=== PATIENT | female | born 1950 | race Caucasian/White ===

== ENCOUNTER 2025-01-26 19:52 | Inpatient (IN) | payer MEDICARE ==
[~2025-01-26] VITALS: Ht 167.6 cm; Wt 110.0 kg
[~2025-01-26 19:52] MED LIST: ATOR40TA PO; Aspir 8181 MG PO; CLON1 PO; METF500C PO; Multivitamin1 EAC1; TOPROL XL200 MG PO; VITAMIN D5000 UNIT PO; ZOLP10
[2025-01-26 20:19] LABS: BASOPHILS ABSOLUTE AUTO 0.05 K/mm3 (0.00-0.23); BASOPHILS PERCENT AUTO 1 % (0-2); EOSINOPHILS ABSOLUTE AUTO 0.18 K/mm3 (0.00-0.68); EOSINOPHILS PERCENT AUTO 2 % (0-6); Hematocrit 37.3 % (33.0-51.0); Hemoglobin 12.5 g/dL (11.5-16.0); IMMATURE GRAN ABSOLUTE AUTO 0.07 K/mm3 (0.00-0.10); IMMATURE GRAN PERCENT AUTO 1 % (0-1); LYMPHOCYTES ABSOLUTE AUTO 1.25 K/mm3 (0.84-5.20); LYMPHOCYTES PERCENT AUTO 13 % (21-46); MONOCYTES ABSOLUTE AUTO 0.59 K/mm3 (0.16-1.47); MONOCYTES PERCENT AUTO 6 % (4-13); Mean Corpuscular HGB 29.6 pg (26.0-34.0); Mean Corpuscular HGB Conc 33.5 g/dL (31.5-36.5); Mean Corpuscular Volume 88 fL (80-100); Mean Platelet Volume 9.2 fL (9.1-12.4); NEUTROPHILS ABSOLUTE AUTO 7.22 K/mm3 (1.96-9.15); NEUTROPHILS PERCENT AUTO 77 % (41-73); Platelet Count 312 K/mm3 (150-400); RDW Standard Deviation 44.7 fL (35.1-46.3); Red Blood Cell Count 4.22 M/mm3 (3.80-5.20); White Blood Cell Count 9.36 K/mm3 (4.00-11.30)
[2025-01-26] MEDS ORDERED: Metoprolol Tartrate 1 MG/ML 5 ML VIAL IV PRN (20:30)
[2025-01-26] MEDS ORDERED: Furosemide 10 MG / ML 2ML Vial IV ONE (20:35)
[2025-01-26 20:37] LABS: Albumin, Blood 3.3 g/dL (3.4-5.0); Bun/Creatinine Ratio 22.2 (12.0-20.0); Creatinine, Blood 0.85 mg/dL (0.40-1.00); Globulin, Blood 3.4 g/dL (2.2-4.0); Potassium, Blood 3.8 mmol/L (3.5-5.5); Total Protein, Blood 6.7 g/dL (6.4-8.2)
[2025-01-26] MEDS ORDERED: dilTIAZem HCL 125 MG in Dextrose 5% 100 ML IV SCH (21:50)
[2025-01-26] MEDS ORDERED: Diltiazem HCl 5 MG / ML 5ML Vial IV ONE (21:50)
[2025-01-26] MEDS ORDERED: Ondansetron 4 MG TAB PO PRN (22:15)
[2025-01-26] MEDS ORDERED: Apixaban 5 MG Tab PO SCH (22:16)
[2025-01-26] MEDS ORDERED: Ipratropium Bromide INH 0.02% 0.5 mg/2.5ML Vial INH SCH (22:25)
[2025-01-26 22:35] LABS: Free Thyroxine 1.23 ng/dL (0.70-1.60)
[2025-01-26 22:46] LABS: Phosphorus, Blood 3.9 mg/dL (2.5-4.9); Thyroid Stimulating Hormone 1.76 uIU/mL (0.360-4.800)
[2025-01-26 23:20] VITALS: BP 145/101
[2025-01-26 23:24] LABS: Base Excess Venous 4.4 mmol/L; pH Blood Venous 7.46 (7.34-7.37)
[2025-01-26] MEDS ORDERED: Prozac40 MG PO (23:55)
[2025-01-27] MEDS ORDERED: Metoprolol Tartrate 1 MG/ML 5 ML VIAL IV PRN (00:45)
[2025-01-27 04:20] VITALS: BP 124/97
--- NOTE | 2025-01-27 05:56 | NUR ---
SHIFT SUMMARY: PT ARRIVES TO PCU 15 FROM THE ER VIA GURNEY AROUND 2300. PT IS ABLE TO STAND PIVOT TO HOSPITAL BED, SBA. PT ARRIVES WITH CARDIZEM GTT INFUSING PER EMAR. PT IS ORIENTED TO ROOM AND CALL LIGHT. HTN, AFIB 90'S, ON 2L NC SATTING IN THE LOW 90'S, AFEBRILE. PT DID TOLERATE WEARING A CPAP MUCH OF THIS SHIFT. PT REMAINS IN AFIB 90'S-120'S. DENIES PAIN. PT IS A&OX4, PLEASANT AND COOPERATIVE. PT IS ON A HEART HEALTHY DIET, TOLERATING WATER. PT IS A SBA TO BR FOR LINE MANAGEMENT. VOIDING ADEQUATE AMOUNTS OF CLEAR YELLOW URINE. PT HAS STRESS INCONTINENCE BASELINE, PULLUP IN PLACE. NO BM THIS SHIFT. BED IN LOWEST POSITION, CALL LIGHT WITHIN REACH.
[2025-01-27] MEDS ORDERED: Insulin Human Lispro 100 Units/ML 3ML Syringe SC SCH (07:30)
--- NOTE | 2025-01-27 08:00 | NUR ---
[place] of care: Alert & oriented. In afib in 100-110s. Stable blood pressure. Oxygen saturation mid 90s on 4L NC with clear lung sounds. Taking good PO. Cardizem gtt infusing, see emar for details. Will continue to monitor.
[2025-01-27 08:14] VITALS: BP 138/98
[2025-01-27] MEDS ORDERED: Docusate Sodium 100 MG Cap PO SCH (09:00)
[2025-01-27] MEDS ORDERED: Metoprolol Succinate 50 MG TABCR PO SCH ×2 (09:00)
[2025-01-27] MEDS ORDERED: Furosemide 10 MG/ML 4ML Vial IV SCH (09:00)
[2025-01-27] MEDS ORDERED: Famotidine 20 MG Tab PO SCH (09:00)
[2025-01-27 11:19] VITALS: BP 148/99
[2025-01-27 15:41] VITALS: BP 149/94
--- NOTE | 2025-01-27 17:10 | NUR ---
Shift summary: Remains neuro intact. Hemodynamically stable on cardizem gtt at 10 mg/hr. SBP in 140s. Afib in 100s. On 4L NC with stable oxygen sats. Clear lung sounds. OOB to bathroom to void. Good PO intake. Blood sugars stable. PIV x2 in place. Will continue to monitor.
--- NOTE | 2025-01-27 19:33 | NUR ---
ASSUMPTION OF CARE ASSUMED PT'S CARE AT 1900,BEDSIDE REPORT COMPLETED.PT WIDE AWAKE RESTING IN BED.PLAN OF CARE REVIEWED.CARDIZEM DRIP INFUSING AT 10MG/HR,HR 95-107.PT DENIES CHEST PAIN,DENIES SOB,DENIES NEEDS.CALL LIGHT AND PT'S ITEMS WITHIN REACH.WILL CONTINUE TO MONITOR.
[2025-01-27 20:22] VITALS: BP 125/75
[2025-01-28 00:39] VITALS: BP 114/90
[2025-01-28 04:29] VITALS: BP 132/101
[2025-01-28 04:43] LABS: Hematocrit 33.7 % (33.0-51.0); Hemoglobin 11.2 g/dL (11.5-16.0); Mean Corpuscular HGB 29.6 pg (26.0-34.0); Mean Corpuscular HGB Conc 33.2 g/dL (31.5-36.5); Mean Corpuscular Volume 89 fL (80-100); Mean Platelet Volume 9.3 fL (9.1-12.4); Platelet Count 283 K/mm3 (150-400); RDW Standard Deviation 44.8 fL (35.1-46.3); Red Blood Cell Count 3.78 M/mm3 (3.80-5.20); White Blood Cell Count 7.59 K/mm3 (4.00-11.30)
[2025-01-28 05:02] LABS: Bun/Creatinine Ratio 28.2 (12.0-20.0); Calcium, Blood 8.5 mg/dL (8.5-10.1); Creatinine, Blood 0.92 mg/dL (0.40-1.00); Magnesium, Blood 1.9 mg/dL (1.6-2.4); Phosphorus, Blood 4.5 mg/dL (2.5-4.9); Potassium, Blood 3.5 mmol/L (3.5-5.5)
--- NOTE | 2025-01-28 06:37 | NUR ---
PT AWAKE MOST OF THE NIGHT LISTENING TO PODCAST ON HER CALL PHONE.PT AMBULATE WITH STANDBY ASSIST TO BATHROOM ,NEEDS HELP WITH THE IV PUMP.DILTIAZEM INFUSING AT 5MG/HR,HR 96-105,BP STABLE.OXGYGEN TITRATED DOWN TO 2L,OXYGEN SATURATION >92%.PT REPORTED SOB WITH EXERTION BUT DID NOT NEED INCREASE IN OXYGEN FLOW RATE.PT SLEEPING AT THIS TIME,EASILY AROUSABLE.DENIES PAIN,DENIES NEEDS.CALL LIGHT AND PT'S ITEMS WITHIN REACH.WILL GIVE REPORT TO DAYSHIFT NURSE FOR CONTINUITY OF CARE.
[2025-01-28 07:23] VITALS: BP 149/102
[2025-01-28] MEDS ORDERED: Empagliflozin 10 MG TAB PO SCH (09:00)
[2025-01-28] MEDS ORDERED: dilTIAZem HCL 120 MG CAP.CD PO ONE (10:55)
[2025-01-28] MEDS ORDERED: dilTIAZem HCL 240 MG CAP.CD PO SCH (11:00)
[2025-01-28 11:37] VITALS: BP 130/99
[2025-01-28] MEDS ORDERED: Ipratropium/Albuterol SulF 2.5-0.5MG/3 ML Amp INH SCH ×2 (12:00→14:00)
[2025-01-28] MEDS ORDERED: Mag Sulfate 1 GM/D5% 100ML 100 ML IV STA (13:43)
[2025-01-28] MEDS ORDERED: Potassium Chloride 20 MEQ TabCR PO ONE (13:45)
[2025-01-28 16:46] VITALS: BP 142/98
--- NOTE | 2025-01-28 18:11 | NUR ---
SHIFT SUMMARY: PT A&OX4. FOLLOWS COMMANDS AND MAKES NEEDS KNOWN TO STAFF. PT HAS BEEN GETTING UP TO THE BATHROOM WITH SBA FOR CORD MANAGEMENT. PT REPORTS SOB WITH EXERTION AND WAS TITRATED TO 1L NC DURING THIS SHIFT. PT HAS HAD A MODERATE AMOUNT OF URINARY OUTPUT TODAY. NO SIGNIFICANT EVENTS HAPPENED DURING THIS SHIFT. WILL CONTINUE TO CARE FOR PT TILL END OF SHIFT.
[2025-01-28] MEDS ORDERED: Melatonin 5 MG Tablet PO PRN (19:15)
[2025-01-28 19:50] VITALS: BP 139/88
[2025-01-29 01:36] VITALS: BP 117/93
--- NOTE | 2025-01-29 03:14 | NUR ---
SYSTEMS CONSULTANT SUMMARY VSS. WAS ON CARDIZEM DRIP ON DAY SHIFT, DRIP DC'D PRIOR TO SHIFT START. VSS. ALERT AND ORIENTED X 4, UP AD JAVIER. DENIED PAIN OR DISCOMFORT THROUGHOUT SHIFT. O2 AT 1-2L/MIN PER NC. SEEMS TO DESAT WHEN OOB. WAS AWAKE WATCHING TELEPHONE POD CASTS. VOICED DIFFICULTY TO GET TO SLEEP. MELATONIN PO ADMIN, HAS BEEN RESTING QUIETLY SINCE. ABLE TO REPOSITION SELF IN BED WITHOUT ASSIST FOR COMFORT. CALL LIGHT IN REACH, RAILS UP X 2 AND BED IN LOW POSITION FOR SAFETY. WILL CONTINUE TO MONITOR
[2025-01-29 03:59] LABS: BASOPHILS ABSOLUTE AUTO 0.05 K/mm3 (0.00-0.23); BASOPHILS PERCENT AUTO 1 % (0-2); EOSINOPHILS ABSOLUTE AUTO 0.24 K/mm3 (0.00-0.68); EOSINOPHILS PERCENT AUTO 3 % (0-6); Hematocrit 34.3 % (33.0-51.0); Hemoglobin 11.3 g/dL (11.5-16.0); IMMATURE GRAN ABSOLUTE AUTO 0.07 K/mm3 (0.00-0.10); IMMATURE GRAN PERCENT AUTO 1 % (0-1); LYMPHOCYTES PERCENT AUTO 15 % (21-46); MONOCYTES ABSOLUTE AUTO 0.77 K/mm3 (0.16-1.47); MONOCYTES PERCENT AUTO 9 % (4-13); Mean Corpuscular HGB Conc 32.9 g/dL (31.5-36.5); Mean Corpuscular Volume 88 fL (80-100); NEUTROPHILS ABSOLUTE AUTO 6.09 K/mm3 (1.96-9.15); NEUTROPHILS PERCENT AUTO 72 % (41-73); Platelet Count 304 K/mm3 (150-400); RDW Standard Deviation 45.1 fL (35.1-46.3); Red Blood Cell Count 3.89 M/mm3 (3.80-5.20); White Blood Cell Count 8.52 K/mm3 (4.00-11.30)
[2025-01-29 04:13] LABS: Anion Gap 8 mmol/L (3-11); Blood Urea Nitrogen 21 mg/dL (8-24); Bun/Creatinine Ratio 21.3 (12.0-20.0); CO2, Blood 31 mmol/L (21-32); Calcium, Blood 8.7 mg/dL (8.5-10.1); Chloride, Blood 102 mmol/L (98-108); Creatinine, Blood 0.99 mg/dL (0.40-1.00); Glomerular Filtration Rate 60 (60-); Glucose, Blood 123 mg/dL (70-99); Magnesium, Blood 2.4 mg/dL (1.6-2.4); Potassium, Blood 3.6 mmol/L (3.5-5.5); Sodium, Blood 137 mmol/L (136-145)
[2025-01-29 05:21] VITALS: BP 148/106
[2025-01-29 07:34] VITALS: BP 158/96
[2025-01-29] MEDS ORDERED: dilTIAZem HCL 120 MG CAP.CD PO ONE (10:45)
[2025-01-29] MEDS ORDERED: FURO20 PO (11:10)
[2025-01-29] MEDS ORDERED: KLOR-CON 1010 ME9 PO (11:12)
[2025-01-29 11:26] VITALS: BP 129/91
[2025-01-29] MEDS ORDERED: TELM80 PO (12:24)
[2025-01-29] MEDS ORDERED: dilTIAZem HCL 60 MG TAB PO ONE (13:00)
[2025-01-29] MEDS ORDERED: Ipratropium Bromide INH 0.02% 0.5 mg/2.5ML Vial INH SCH (13:30)
[2025-01-29 16:42] VITALS: BP 128/90
--- NOTE | 2025-01-29 17:32 | NUR ---
SHIFT SUMMARY: PT A&OX4. FOLLOWS COMMANDS AND MAKES NEEDS KNOWN TO STAFF. PT HAS GOTTEN UP TO THE BATHROOM INDEPENDENTLY ALL DAY AND ALSO TOOK A SHOWER. PT STILL REPORTS SOB WITH EXERTION. PT HR WAS TACHY MOST OF THE DAY WHICH IS NOT CONTROLLED AFTER ADDITIONAL CARDIZEM PO MEDS. PT HAS REMAINED FREE OF ANY CP OR ANY OTHER COMPLAINTS DURING THIS SHIFT. NO OTHER SIGNIFICANT EVENTS HAPPENED DURING THIS SHIFT. WILL CONTINUE TO CARE FOR PT TILL END OF SHIFT.
[2025-01-29 19:16] VITALS: BP 121/88
[2025-01-30] MEDS ORDERED: Ipratropium Bromide INH 0.02% 0.5 mg/2.5ML Vial INH PRN (00:05)
[2025-01-30 05:15] LABS: BASOPHILS ABSOLUTE AUTO 0.05 K/mm3 (0.00-0.23); BASOPHILS PERCENT AUTO 1 % (0-2); EOSINOPHILS ABSOLUTE AUTO 0.23 K/mm3 (0.00-0.68); EOSINOPHILS PERCENT AUTO 4 % (0-6); Hematocrit 34.4 % (33.0-51.0); Hemoglobin 11.3 g/dL (11.5-16.0); IMMATURE GRAN ABSOLUTE AUTO 0.06 K/mm3 (0.00-0.10); IMMATURE GRAN PERCENT AUTO 1 % (0-1); LYMPHOCYTES ABSOLUTE AUTO 1.44 K/mm3 (0.84-5.20); LYMPHOCYTES PERCENT AUTO 23 % (21-46); MONOCYTES ABSOLUTE AUTO 0.61 K/mm3 (0.16-1.47); MONOCYTES PERCENT AUTO 10 % (4-13); Mean Corpuscular HGB 29.1 pg (26.0-34.0); Mean Corpuscular HGB Conc 32.8 g/dL (31.5-36.5); Mean Corpuscular Volume 89 fL (80-100); Mean Platelet Volume 8.9 fL (9.1-12.4); NEUTROPHILS ABSOLUTE AUTO 3.96 K/mm3 (1.96-9.15); NEUTROPHILS PERCENT AUTO 62 % (41-73); Platelet Count 291 K/mm3 (150-400); Red Blood Cell Count 3.88 M/mm3 (3.80-5.20); White Blood Cell Count 6.35 K/mm3 (4.00-11.30)
[2025-01-30 06:09] LABS: Bun/Creatinine Ratio 23.5 (12.0-20.0); Calcium, Blood 8.7 mg/dL (8.5-10.1); Creatinine, Blood 0.94 mg/dL (0.40-1.00); Potassium, Blood 3.4 mmol/L (3.5-5.5)
[2025-01-30 08:05] VITALS: BP 136/93
--- NOTE | 2025-01-30 08:17 | NUR ---
AM NOTE PT ALERT, ORIENTED; CALM AND COOPERATIVE WITH CARE. PT IND IN ROOM. PT DENIES PAIN, CHEST PAIN/PRESSURE, SOB, NAUSEA, DIZZINESS AND NUMB/TINGLING. PT TELE SINUS 60'S, BP STABLE. NO EDEMA NOTED. SPO2 >90% ON 1L O2 VIA NC, ATTEMPTED TO TITRATE TO RA, DESATURATED TO 87%, REPLACED 1L. ABD SOFT, NONTENDER, +BT NOTED. NO OTHER ACUTE CHANGES NOTED. WILL CONTINUE TO MONITOR.
[2025-01-30] MEDS ORDERED: Potassium Chloride 20 MEQ TabCR PO ONE (09:00)
[2025-01-30] MEDS ORDERED: Diltiazem HCl 180 MG Cap.CD PO SCH (09:00)
[2025-01-30] MEDS ORDERED: ELIQUIS5 M2 PO (10:34)
[2025-01-30] MEDS ORDERED: JARDIANCE10 MG PO (10:34)
[2025-01-30] MEDS ORDERED: DILT180 PO (10:34)
[2025-01-30] MEDS ORDERED: FAMO20 PO (10:35)
[2025-01-30 14:58] VITALS: BP 140/83
--- NOTE | 2025-01-30 15:21 | NUR ---
Shift Summary No acute changes noted t/o shift. Home o2 eval completed, Tayo at bedside to provide home o2. Pt educated on discharge in structions, follow up appointments, medications and heart failure. Pt left room via wheelchair at approx 1505.
== END 2025-01-30 15:05 | disposition home or self-care (01) | DRG 291 ==
LOC: ER 19:52 → PCU 22:14
PROVIDERS: Emergency Medicine; Family Medicine; Student in an Organized Health Care Education/Training Program; ADMIT Student in an Organized Health Care Education/Training Program
DX: I11.0 Hypertensive heart disease with heart failure (principal); I50.31 Acute diastolic (congestive) heart failure; J96.01 Acute respiratory failure with hypoxia; J44.9 Chronic obstructive pulmonary disease, unspecified; I48.91 Unspecified atrial fibrillation; E78.5 Hyperlipidemia, unspecified; E11.9 Type 2 diabetes mellitus without complications; I27.20 Pulmonary hypertension, unspecified; Z79.84 Long term (current) use of oral hypoglycemic drugs; Z79.82 Long term (current) use of aspirin; Z79.899 Other long term (current) drug therapy; Z98.51 Tubal ligation status; Z90.49 Acquired absence of other specified parts of digestive tract; Z87.891 Personal history of nicotine dependence
CPT/HCPCS: 36415; 71045; 80048; 80053; 80069; 82803; 82947; 83036; 83735; 83880; 84100; 84439; 84443; 84484; 85025; 85027; 93005; 93010; 93306; 94640; 94660; 94664; 94761; 94762; 96374; 96375; 96376; 97110; 97116; 97161; 97165; 97535; 99285-25; A9270; J1940; J3475